=== PATIENT | male | born 1965 | race Two or more races ===

== ENCOUNTER 2022-10-14 12:16 | Emergency (ER) | payer MEDICARE, MEDICAID, SELFPAY ==
--- NOTE | ~2022-10-14 | CT_ITS ---
EXAMINATION: CT CHEST WITHOUT CONTRAST CLINICAL INFORMATION: Fall. Right lateral rib pain and right upper quadrant pain COMPARISON: None TECHNIQUE: Multidetector volumetric CT imaging of the chest was done. Axial MIP volume rendering provided. Sagittal and coronal reformatted images were obtained. This CT examination was performed using dose optimization techniques as appropriate, variously including the following: *Automated exposure control *Adjustment of mA and/or kV according to patient size (this includes techniques or standardized protocols for targeted exams where dose is matched to indication/reason for exam; i.e. extremities or head) *Use of iterative reconstruction technique DLP: 308 mGy-cm FINDINGS: LACROSSE COACH: LUNGS: Subsegmental atelectasis at the left lung base. MEDIASTINUM: The mediastinum is normal. CORONARY ARTERY CALCIFICATION: None visualized on this study. PLEURA: There is no pleural effusion. No pneumothorax. No pleural mass or thickening. AXILLA: No lymphadenopathy. UPPER ABDOMEN: Fatty liver. OSSEOUS STRUCTURES: Degenerative changes of the spine. No fracture. CT/CT chest wo IV con IMPRESSION: No evidence for acute disease in the chest. Subsegmental atelectasis in the left lower lobe. Fatty liver. Fleischner guidelines were followed.
[2022-10-14 12:27] VITALS: BP 151/92; PULSE 100; RESP 18; TEMP 36.5; O2SAT 99; BMI 24.1
--- OUTSIDE RECORDS SUMMARY | 2022-10-14 12:44 | XMS_ITS ---
:1965 Author Care Team Providers Name Role Phone ELIZABETH DEL RIO MD Primary Care Provider [phone] Allergies Code Code System Name Reaction Severity Status Onset NKDA ? Medications Name Status Start Date Stop Date ? ? acetaminophen 500 mg tablet Active ? Not available amoxicillin 500 mg capsule Completed ? 11/06 TAKE 1 TABLET EVERY 8 HRS UNTIL GONE atorvastatin 20 mg tablet Active ? Not av ailable TAKE 1 TABLET BY MOUTH EVERY DAY baclofen 10 mg tablet Completed ? 06/18/2020 cephalexin 500 mg capsule Completed ? 2021 TAKE 1 CAPSULE BY MOUTH TWICE A DAY FOR 7 DAYS cephalexin 500 mg tablet Completed ? 022 Take 1 tablet 3 times a day by oral route. cyclobenzaprine 7.5 mg tablet Completed ? TAKE 1 TABLET BY MOUTH AT BEDTIME NEEDED FOR MUSCLE SPASMS diclofenac 1 % topical gel Active ? Not a vailable APPLY 1 ACT TOPICALLY TWICE A DAY gabapentin 300 mg capsule Completed ? 2019 ibuprofen 600 mg tablet Active ? Not avai lable TAKE 1 TABLET BY MOUTH EVERY 6 HOURS NEEDED FOR PAIN lidocaine 5 % topical patch Active ? Not available APPLY 1 PATCH TOPICALLY ONCE DAY (MAY WEAR UP TO 12HOURS IN A 2 4HR PERIOD methocarbamol 750 mg tablet Completed ? 05/21 polyethylene glycol 3350 17 gram oral powder packet Completed ? 07/10/2020 pregabalin 150 mg capsule Active ? Not av ailable Take 1 capsule twice a day by oral route for 30 days. pregabalin 75 mg capsule Active ? Not melida ilable TAKE 2 CAPSULES BY MOUTH EVERY DAY IN T HE MORNING AND TAKE 2 CAPSULES IN THE EVENING sertraline 25 mg tablet Active ? Not avai lable TAKE 1 TABLET BY MOUTH EVERY DAY simvastatin 20 mg tablet Completed ? 020 topiramate 25 mg tablet Active ? Not avai lable TAKE 2 TABLETS BY MOUTH TWICE A DAY Problems Name Status Onset Date Source ? Post-herpetic Polyneuropathy Active ? ? Fibromyalgia Active ? ? Central Post-stroke Pain Active ? ? Headache Active ? ? Procedures Date Name Performed by ? 05/27/2021 US, Duplex, Venous, Lower Extremity [facility] [address] (Work [address]) Notes: None Results Lab Results None recorded. Past Encounters Encounter Date Diagnosis Provider 02/26/2022 Central Post-stroke Pain; Head[place] Kirsten Hawkins MD: [address], [facility] [place] [address], Ph. 11/06/2021 Central Post-stroke Pain; Headache Kirsten Hawkins MD: [address], [facility] [place] [address], Ph. 05/27/2021 Deep Venous Thrombosis of Lower Thenu Cayla quigley MD: [address]; Central Post-stroke Pain; [address], [place], [place] [address], Ph. Social History Tobacco Smoking Status Former Smoker Vaccine List Notes: Covid 19 vaccine- Wilber and Frahan ray Plan of Care Reminders Provider Appointments None recorded. ? ? Lab None recorded. ? ? Referral None recorded. ? ? Procedures None recorded. ? ? Surgeries None recorded. ? ? Imaging None recorded. ? ? Vitals Height Weight BMI Blood Pressure 5 ft 5 in 148 lbs 24.6 kg/m2 (1) 165/95 mm[H g] (2) 172/102 mm[H g]
--- NOTE | 2022-10-14 13:18 | ED_ITS ---
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 The patient had a stroke approximately 5 years prior and has right upper and right lower extremity weakness. The patient is in a wheelchair. The patient is supposed to go to the bathroom assistance but the patient went to the bathroom by himself. patient fell in the bathroom, struck his right past the bathtub, he did his head but had no loss of consciousness. patient's sister was home at the time and the patient did not spend any prolonged time on the floor. Since the fall, the patient has complained of constant, right-sided chest pain. The pain is sharp, worse with breathing worse with movement. The pain is 10 out 10. The patient is not taking any pain medications for the chest pain. And he denies shortness of breath. He denied fever, chills, rhinorrhea, cough, nausea, vomiting, diarrhea, abdominal pain. MD complaint: fall Onset (ago): day(s) (3) Fall from: standing Fall witnessed: no Place fall occurred: home Loss of consciousness: none Prolonged down time: no Symptoms prior to fall: none Context: tripped/slipped Location of injury: chest ( Right lateral chest) Severity scale (1-10): 10 Quality: sharp Related Data Allergies Allergy/AdvReac Type Severity Reaction Status Date / Time No Known Allergies Allergy Verified 10/14/22 13:17 Review of Systems 2 Review of Systems: Yes all other systems are reviewed and are negative [facility] Past Medical History [facility] Narrative: past medical history: Stroke 5 years prior with right upper and right lower extremity weakness, wheelchair-bound , chronic pain secondary to stroke, depression, hyperlipidemia. 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 Patient is a former smoker, he stop smoking 6 years prior and smoked for 30 years. He drinks 3 cans of beer per day. He denies drug use. Social History Social History Advance Directives: No Advance Directives Information Provided: No Physical Exam Vital Signs: Vital Signs: Last Vital Signs Temp 97.7 F 10/14/22 12:27 Pulse 100 10/14/22 12:27 Resp 18 10/14/22 12:27 BP 151/92 H 10/14/22 12:27 Pulse Ox 99 10/14/22 12:27 O2 Del Method 10/14/22 12:27 BMI result Body Mass Index 24.1 Const: General: cooperative and no acute distress Orientation/consciousness: oriented to person and oriented to place L imitations: no limitations HEENT: Head: Yes normal to inspection, Yes normocephalic and Yes atraumatic Ears: external ears normal General nose exam: Normal external nose present Face and sinus: Yes normal facial exam Mouth: Normal oral and palatal mucosa present Throat: Yes posterior oropharynx normal Eyes: General: appearance normal, both eyes and all related structures Pupils: Equal, round and reactive pupils present Neck: Neck: Yes normal visual inspection, Yes no lymphadenopathy, Yes trachea midline and Yes supple Chest: Chest palpation & inspection: normal inspection of the chest and tenderness ( Moderate to severe right lateral chest ribs 3 through 8, no crepitus) Resp: Effort & Inspection: normal respiratory effort and able to speak in co mplete sentences Auscultation: clear to auscultation bilaterally Cardio: Rate: regular rate Rhythm: regular rhythm Heart sounds: S1 normal heart sound present, S2 normal heart sound present and no murmurs GI: Inspection: Yes normal to inspection Palpation (GI): Soft to palpation, Tenderness to palpation present (GI) in the RUQ ( moderate) and no guarding Auscultation: normal bowel sounds : General: Yes no CVA tenderness Back/Spine/Pelvis: Back: no CVA tenderness Skin: General skin exam: no rashes or lesions noted Neuro: General: oriented to person and oriented to place Cranial nerves: Yes CN's II-XII intact bilaterally and Yes Equal, round and reactive pupils present Cognition (Neuro): normal cognition Motor exam (neuro): Other motor observations present ( right hemiparesis upper and lower extremity) Extrem: Other: atrophy of the right upper extremity secondary to stroke, nonpitting edema of both lower extremities right greater than left, right is chronic larger secondary to stroke and no movement Psych: Appearance: grossly normal Speech and movement: Normal speech and movement present Affect: normal affect Attitude: cooperative Thought process: Normal thought process present Thought content: Normal thought content present Course Course Course Narrative: 57-year-old male who presents emergency department for evaluation of right- sided chest pain after fall 3 days prior. Examination does reveal significant tenderness palpation of the right lateral rib cage with no crepitus or ecchymosis noted. Patient also has right upper quadrant tenderness. I suspect that the patient has multiple rib fractures, he may also have a liver injury. Therefore I ordered a CT scan of the chest without IV contrast. Patient was ordered to get ibuprofen 600 mg orally for his pain. 1633: CT scan of the patient's chest revealed no acute finding. The patient's pain is most likely secondary to musculoskeletal pain / bruise ribs from the fall. The patient will be discharged home. He was advised to take Tylenol and ibuprofen for pain. . I did discuss the possibility of herpes zoster with the family as well, if they notice a rash that the patient is to be re-evaluated by his PCP and possibly treated for herpes zoster. Medications Administered Discontinued Medications Generic Name Dose Route Start Last Admin Trade Name Freq PRN Reason Stop Dose Admin Ibuprofen 600 mg 10/14/22 13:18 10/14/22 13:39 Ibuprofen 600 Mg Tablet PO 10/14/22 13:19 600 mg ONCE STA Administration Discharge Plan Discharge Clinical Impression: Fall Qualifiers: Encounter type: initial encounter Qualified Code(s): W19.XXXA - Unspecified fall, initial encounter Contusion of rib on right side Qualifiers: Encounter type: initial encounter Qualified Code(s): S20.211A - Contusion of right front wall of thorax, initial encounter Patient Disposition: Home, Self-Care Instructions: Rib Contusion (ED) Additional Instructions: the CT scan of your chest did not reveal any broken ribs, this is a very sensitive test and should detected even small rib fractures. Your pain is most likely secondary to bruising of the muscles and ribs on the right side of your chest. Take ibuprofen 200 mg pills,2 pills every 6 hours as needed for pain. Take Tylenol (acetaminophen) 500 mg pills, 2 pills every 4 to 6 hours as needed for pain. Follow-up with your doctor in 2 days. Please return to the emergency department if your symptoms get worse or if you develop any symptoms that are concerning to you. If you develop a rash on the right side of your chest then you need to be re- evaluated by your doctor to make sure that you do not have herpes zoster (shingles) as the cause of your pain.
[2022-10-14] MEDS: Ibuprofen 600 MG TABLET PO (13:39)
== END 2022-10-14 16:55 | disposition home or self-care (01) ==
PROVIDERS: Emergency Provider Emergency Medicine Emergency Medical Services; PCP Internal Medicine
DX: S20.211A Contusion of right front wall of thorax, initial encounter (principal); R07.89 Other chest pain; M54.6 Pain in thoracic spine; W01.0XXA Fall on same level from slipping, tripping and stumbling without subsequent striking against object, initial encounter; Y93.9 Activity, unspecified; Y92.9 Unspecified place or not applicable; Y99.9 Unspecified external cause status
CPT/HCPCS: 71250; 99284

== ENCOUNTER 2022-11-11 13:57 | Emergency (ER) | payer OTHER, SELFPAY ==
--- NOTE | ~2022-11-11 | US_ITS ---
EXAMINATION: US ABDOMEN LIMITED CLINICAL INFORMATION: Right upper quadrant pain and elevated LFTs. COMPARISON: CT abdomen and pelvis without contrast performed earlier the same date TECHNIQUE: Real-time imaging of the right upper quadrant abdominal viscera. FINDINGS: PANCREAS: Normal. LIVER: Diffusely increased hepatic echogenicity, suggesting steatosis. No liver lesion or intrahepatic biliary ductal dilation. Normal directional flow demonstrated in the main portal vein. GALLBLADDER: Normal. The gallbladder is physiologically distended without evidence of stones, sludge, polyps, wall thickening or pericholecystic fluid. COMMON BILE DUCT: Normal in caliber measuring 0.5 cm in diameter. RIGHT KIDNEY: Normal. No hydronephrosis. No renal calculi or focal parenchymal lesions. The kidney measures 11.4 cm in maximum dimension. FREE FLUID: None. US/US abdomen limited IMPRESSION: 1. Normal gallbladder. No evidence of cholelithiasis or sonographic findings of acute cholecystitis. 2. No biliary ductal dilation. 3. Diffusely increased hepatic echogenicity, suggesting steatosis.
--- NOTE | ~2022-11-11 | CT_ITS ---
EXAMINATION: CT ABDOMEN AND PELVIS WITHOUT CONTRAST CLINICAL INFORMATION: Nausea and constipation COMPARISON: CT chest from 10/14/2020 TECHNIQUE: Multidetector volumetric imaging was performed from the superior aspect of the liver through the pubic symphysis. Sagittal and coronal reformatted images were obtained on the technologist's workstation. This CT examination was performed using dose optimization techniques as appropriate, variously including the following: *Automated exposure control *Adjustment of mA and/or kV according to patient size (this includes techniques or standardized protocols for targeted exams where dose is matched to indication/reason for exam; i.e. extremities or head) *Use of iterative reconstruction technique DLP: 551 mGy-cm FINDINGS: LUNG BASES: Bibasilar atelectasis. No pneumothorax. LIVER, GALLBLADDER, AND BILIARY TREE: The liver is normal in size and shape. Prominently decreased hepatic attenuation suggesting hepatic steatosis though underlying hepatocellular pathology not excluded. No focal hepatic lesion or biliary ductal dilatation is present. The gallbladder is unremarkable with no evidence of radiopaque gallstones, gallbladder wall thickening, or obvious pericholecystic inflammatory changes. PANCREAS: Unremarkable. SPLEEN: Unremarkable. ADRENAL GLANDS: Unremarkable. KIDNEYS AND URETERS: Multiple nonobstructive punctate right-sided renal calculi are noted measuring 2 mm without hydronephrosis. No left-sided nephrolithiasis or gross BLADDER: Unremarkable. GASTROINTESTINAL TRACT: Mild fecal loading. The small and large bowel are unremarkable. The appendix is unremarkable. ABDOMINAL WALL: Small fat filled umbilical hernia. LYMPH NODES: No enlarged lymph nodes per size criteria. VASCULAR: Abdominal aorta is nonaneurysmal. PELVIC VISCERA: Prostate measures 3.7 cm. OSSEOUS STRUCTURES: Multilevel degenerative changes of the thoracolumbar spine. CT/CT abdomen pelvis wo IV con IMPRESSION: 1. No acute process of the abdomen or pelvis identified. 2. Prominently decreased hepatic attenuation suggesting hepatic steatosis though underlying hepatocellular pathology not excluded. 3. Multiple nonobstructive punctate right-sided renal calculi are noted measuring 2 mm without hydronephrosis.
[2022-11-11 14:05] VITALS: BP 125/72; BP 60/30; PULSE 80; RESP 16; TEMP 36.8; O2SAT 96; O2SAT 98; BMI 27.8
--- NOTE | 2022-11-11 14:47 | PC.NURSE ---
patient alert to baseline, vss, iv inserted labs drawn, family member at bedside states that the patients urine has been red in color, pt unable to urinate at this time, awaiting provider, will continue to monitor.
[2022-11-11 14:48] LABS: MANUAL DIFF FLAG NO
[2022-11-11 14:52] LABS: Basophils Percent Auto 0.2 % (0-2); Eosinophils Absolute Auto 0.1 X10*3/uL (0.0-0.4); Eosinophils Percent Auto 0.6 % (0-4); Hematocrit 42.9 % (42.0-52.0); Hemoglobin 14.9 g/dl (14.0-18.0); Imm Gran Abs Auto 0.06 X10*3/uL (0.00-0.03); Imm Gran Pct Auto 0.7 % (0.0-0.4); Lymphocytes Absolute Auto 1.2 X10*3/uL (1.2-4.9); Lymphocytes Percent Auto 14.3 % (20-40); Mean Corpuscular HGB Conc 34.7 g/dl (31.0-36.0); Mean Corpuscular Volume 95.1 fL (80.0-98.0); Mean Platelet Volume 9.2 fL (9.4-12.4); Monocytes Absolute Auto 0.8 X10*3/uL (0.1-1.2); Monocytes Percent Auto 9.8 % (2-11); Neutrophils Absolute Auto 6.1 x10*3/uL (2.0-8.3); Neutrophils Percent Auto 74.4 % (45-73); Platelet Count 151 X10*3/uL (160-400); Red Blood Count 4.51 X10*6/uL (4.60-5.80); Red Cell Distribution Width 12.4 % (11.0-16.0); White Blood Count 8.1 X10*3/uL (4.8-10.8)
[2022-11-11 15:00] VITALS: BP 130/72; PULSE 87; RESP 15; TEMP 37.1; O2SAT 98
--- NOTE | 2022-11-11 15:01 | ED.NAVMDI ---
HPI - Nausea/Vomiting/Diarrhea General Chief complaint: Nausea/Vomiting/Diarrhea Stated complaint: VOMITING Time Seen by Provider: 11/11/22 14:55 Source: patient, family and EMS Mode of arrival: EMS Limitations: no limitations History of Present Illness HPI Narrative: 57 yo male with hx of stroke and R sided hemiparesis, depression, HLD, here with 6 days of constipation, minimal flatus, nausea, vomiting after he tries to eat. He has some abdominal discomfort. He has no fevers. This has not happened before. He has not had abdominal surgery in the past. No change in diet, no sick contacts. MD elicited complaint: nausea, vomiting and abdominal pain Onset (ago): day(s) (6) Description of vomiting: watery Associated nausea: Yes Associated abdominal pain: Yes Location of pain: diffuse Radiation: diffuse Pain consistency: constant Severity: mild Quality: aching Exacerbating factors: eating Relieving factors: none Associated symptoms: loss of appetite, malaise and nausea/vomiting Related Data Allergies Allergy/AdvReac Type Severity Reaction Status Date / Time No Known Allergies Allergy Verified 10/14/22 13:17 Review of Systems Review of Systems: Constitutional : No Weight loss, No Fever, No Chills, pos fatigue ENT/Mouth : No sore throat, No Rhinorrhea Eyes: No Swelling, No Redness Cardiovascular : No Chest Pain, No SOB, NoEdema Respiratory : No Cough, No Sputum, No Wheezing Gastrointestinal : Positive Nausea, Positive Vomiting, no Diarrhea, positive abdominal Pain, No Hematochezia, No Melena, pos constipation Genitourinary : No Dysuria, No Urinary Frequency, No Hematuria, No Urgency, pos decreased urinary output Musculoskeletal : No joint pain, No Myalgias, No Joint Swelling Skin : No Skin Lesions, No rash Neuro : No Weakness, No Numbness, No Dizziness, No Headache Psych : No Anxiety/Panic, No Depression Heme/Lymph: No Bruising, No Lymphadenopathy Endocrine : No Polyuria, No Polydipsia All other systems reviewed and are negative. Gastrointestinal: Gastrointestinal: Reports nausea PMFSH Past Medical History Attestation statement: The following information was validated with the patient. Medical History Depression High cholesterol Stroke Social History Social History Alcohol intake: current Alcohol intake frequency: holidays/special occasions only Alcohol type: beer Smoked in Last 30 Days: No Use of substances other than those prescribed or required for medical reasons: No Advance Directives: Yes Advance Directives Information Provided: Yes Advance Directives on File: No Physical Exam Vital Signs: Vital Signs: Last Vital Signs Temp 98.0 F 11/11/22 16:00 Pulse 84 11/11/22 16:00 Resp 18 11/11/22 16:00 BP 113/68 11/11/22 16:00 Pulse Ox 95 11/11/22 16:00 O2 Del Method 11/11/22 16:00 BMI result Body Mass Index 27.8 Appearance: Alert. Oriented X3. No acute distress. Eyes: Pupils equal, round and reactive to light. ENT: Pharynx mildly dry MM. Neck: Normal inspection. Neck supple. CVS: Normal heart rate and rhythm. Pulses normal. Respiratory: No respiratory distress. Breath sounds normal. Abdomen: Soft with mild distention. no rebound or guarding. Skin: Skin warm and dry. Normal skin color. Normal skin turgor. Extremities: No lower extremity edema. No calf ttp Neuro: Oriented X 3. R sided hemiparesis. No sensory deficit. Course Course Course Narrative: signed out to Dr. Leos 430pm Medications Administered Discontinued Medications Generic Name Dose Route Start Last Admin Trade Name Lucien PRN Reason Stop Dose Admin Lactated Ringer's 1,000 mls @ 999 mls/hr 11/11/22 15:15 11/11/22 16:06 Lr IV 11/11/22 16:15 999 mls/hr .Q1H1M AISSATOU Administration Ondansetron HCl 4 mg 11/11/22 15:06 11/11/22 16:06 Ondansetron Hcl 4 Mg/2 Ml Vial IVPUSH 11/11/22 15:07 4 mg ONCE ONE Administration Medical Decision Making Medical Decision Making [facility] Narrative: 57 yo male with hx of stroke and R sided deficits, HLD here with constipation, abdominal pain and nausea vomiting he denies sick contacts, dietary changes or pain medications. no prior abdominal surgeries. at this time will need basic labs, CT scan for obstructive purposes, hydration and IV zofran. Differential Diagnosis Differential Diagnoses: The differential diagnosis associated with the presentation includes possible constipation, obstruction, mass, cholecystitis, pancreatitis, UTI Lab Data [facility] Lab Attestation statement: I reviewed the patient's lab results. 11/11/22 14:42 11/11/22 14:42 Labs: Lab Results 11/11/22 11/11/22 11/11/22 Range/Units 14:42 14:42 14:42 WBC 8.1 (4.8-10.8) X10*3/uL RBC 4.51 L (4.60-5.80) X10*6/uL Hgb 14.9 (14.0-18.0) g/dl Hct 42.9 (42.0-52.0) % MCV 95.1 (80.0-98.0) fL MCH 33.0 (27.0-33.0) pg MCHC 34.7 (31.0-36.0) g/dl RDW 12.4 (11.0-16.0) % Plt Count 151 L (160-400) X10*3/uL MPV 9.2 L (9.4-12.4) fL Immature Gran % (Auto) 0.7 H (0.0-0.4) % Neut % (Auto) 74.4 H (45-73) % Lymph % (Auto) 14.3 L (20-40) % Love % (Auto) 9.8 (2-11) % Eos % (Auto) 0.6 (0-4) % Baso % (Auto) 0.2 (0-2) % Lymph # (Auto) 1.2 (1.2-4.9) X10*3/uL Love # (Auto) 0.8 (0.1-1.2) X10*3/uL Eos # (Auto) 0.1 (0.0-0.4) X10*3/uL Baso # (Auto) 0.0 (0.0-0.2) X10*3/uL Abs Immat Gran (auto) 0.06 H (0.00-0.03) X10*3/uL Absolute Neuts (auto) 6.1 (2.0-8.3) x10*3/uL Absolute Nucleated RBC 0.000 (0.0-0.012) X10*3/uL Nucleated RBC % (auto) 0.0 (0.0-0.2) /100WBC Sodium 132 L (135-145) mmol/L Potassium 4.1 (3.3-5.1) mmol/L Chloride 104 (96-108) mmol/L Carbon Dioxide 15 L (22-29) mmol/L Anion Gap 17 (12-20) BUN 16 (9-16) mg/dL Creatinine 0.93 (0.5-1.4) mg/dL Estim Creat Clear Calc 75.8 Estimated GFR > 60 Random Glucose 121 H (60-115) mg/dL Calcium 8.4 (8.4-10.2) mg/dL Total Bilirubin 2.1 H (0.0-1.0) mg/dL AST 242 H (5-37) U/L ALT 122 H (0-40) U/L Alkaline Phosphatase 96 (39-117) U/L Total Protein 6.5 (6.5-8.0) g/dL Albumin 3.7 (3.5-5.0) g/dL Lipase 30 (8-78) U/L Influenza Type A (PCR) NEGATIVE (Negative) Influenza Type B (PCR) NEGATIVE (Negative) RSV RNA Qual (PCR) NEGATIVE (Negative) SARS-CoV-2 RNA (RT-PCR) NEGATIVE (Negative) Independent Interpretation I performed an independent interpretation of an: CT Scan (no gallstones noted) Independent Historian Clinical information obtained from an independent historian. History obtained from or confirmed by: Other (family) Discharge Plan Discharge Clinical Impression: Nausea & vomiting Patient Disposition: Still a Patient
[2022-11-11 15:16] LABS: Alanine Aminotransferase 122 U/L (0-40); Albumin Level 3.7 g/dL (3.5-5.0); Alkaline Phosphatase 96 U/L (39-117); Anion Gap 17 (12-20); Aspartate Amino Transferase 242 U/L (5-37); Bilirubin Total 2.1 mg/dL (0.0-1.0); Blood Urea Nitrogen 16 mg/dL (9-16); Calcium 8.4 mg/dL (8.4-10.2); Carbon Dioxide 15 mmol/L (22-29); Chloride 104 mmol/L (96-108); Creatinine Clr Calc Pharmacy 75.8; Estimated Glomerular Filt Rate > 60; Glucose Random 121 mg/dL (60-115); Potassium 4.1 mmol/L (3.3-5.1); Sodium 132 mmol/L (135-145); Total Protein 6.5 g/dL (6.5-8.0)
[2022-11-11 15:43] LABS: Lipase 30 U/L (8-78)
[2022-11-11 15:54] LABS: Influenza A PCR NEGATIVE (Negative); Influenza B PCR NEGATIVE (Negative); Resp Syncy Virus RNA Qual PCR NEGATIVE (Negative); SARS COV2 PCR INHOUSE NEGATIVE (Negative)
[2022-11-11 16:00] VITALS: BP 113/68; PULSE 84; RESP 18; TEMP 36.7; O2SAT 95
[2022-11-11] MEDS: Lactated Ringers 1,000 ML 999 ML IV (16:06)
[2022-11-11] MEDS: ondansetron HCL 4 MG/2 ML VIAL IVPUSH (16:06)
--- NOTE | 2022-11-11 16:09 | PC.NURSE ---
patient awake/alert to baseline,pt medicated for nausea, ivf running per order, vss, call keita within reach, family at bedside, will continue to monitor
[2022-11-11 18:00] VITALS: BP 110/66; PULSE 91; RESP 16; TEMP 36.7; O2SAT 98
--- NOTE | 2022-11-11 18:40 | PC.NURSE ---
patient sleeping, wakes to verbal stimulus, pt urinated prior to obtaining the bladder scan- provider aware, urine obtained, vss, family at bedside, call keita within reach, will continue to monitor.
[2022-11-11 18:53] LABS: Appearance Urine Cloudy; Color Urine Yellow; Glucose Urine UA Negative (Negative); Leukocyte Esterase Urine Negative (Negative); Nitrite Urine Negative (Negative); PH 6.5 (5.0-9.0); Specific Gravity - Urine 1.015 (1.005-1.025); Urine Blood Negative (Negative); Urine Ketones 80 mg/dL (Negative); Urine Protein Negative (Neg-Trace)
--- NOTE | 2022-11-11 19:41 | PC.NURSE ---
Assumed care of pt. at 1900. Pt. in room lying in bed with daughter at bedside. Pt. requesting to urinate. Provided with bedpan. No distress noted. Will continue to monitor.
--- NOTE | 2022-11-11 19:46 | PC.NURSE ---
Assumed care of pt. at 1900. Pt. lying in bed at this time watching tv. No distress noted. Pt. reports no pain at this time. Pt. provided with gingerale and crackers for PO challenge. Will continue to monitor.
--- NOTE | 2022-11-11 20:15 | PC.NURSE ---
Pt. tolerated PO gingerale and crackers.
== END 2022-11-11 20:47 | disposition home or self-care (01) ==
PROVIDERS: Emergency Medicine; Emergency Provider Emergency Medicine; PCP Internal Medicine
DX: R11.2 Nausea with vomiting, unspecified (principal); R79.89 Other specified abnormal findings of blood chemistry; K59.00 Constipation, unspecified; R19.7 Diarrhea, unspecified; R10.33 Periumbilical pain; Z20.822 Contact with and (suspected) exposure to COVID-19; Z20.828 Contact with and (suspected) exposure to other viral communicable diseases; Z79.899 Other long term (current) drug therapy
CPT/HCPCS: 0241U; 36415; 51798; 74176; 76705; 80053; 81003; 83690; 85025; 96361; 96374; 99284; J2405

== ENCOUNTER 2023-08-07 15:14 | Emergency (ER) | payer OTHER, SELFPAY ==
--- NOTE | ~2023-08-07 | US_ITS ---
EXAMINATION: US VENOUS ULTRASOUND WITH DOPPLER LOWER EXTREMITY, RIGHT CLINICAL INFORMATION: Right leg swelling. COMPARISON: None available. TECHNIQUE: Ultrasound of the deep veins is performed from the hip to the calf with compression sonography and color and pulse Doppler assessment. Spectral analysis with color-flow imaging is performed. FINDINGS: There is chronic appearing thrombus within the visualized segments of the mid femoral vein through the popliteal vein. There is lack of compressibility. There is normal venous compression in the visualized common femoral vein, proximal femoral vein, profunda femoral vein without evidence of deep venous thrombosis. The calf veins are not well-visualized. If the patient's symptoms persist, followup ultrasound in 5 days 7 days might be of value to exclude proximal propagation from a non-visualized calf vein. US/US venous duplex LE RT IMPRESSION: Chronic appearing thrombus within the visualized segments of the mid femoral vein through the popliteal vein.
--- NOTE | ~2023-08-07 | US_ITS ---
EXAMINATION: US VENOUS WITH DOPPLER UPPER EXTREMITY, RIGHT CLINICAL INFORMATION: Swelling. Pain. COMPARISON: None available. TECHNIQUE: Ultrasound of the upper extremity is performed using compression sonography and color and pulse Doppler flow with assessment of augmentation of flow. There is also imaging and Doppler assessment of the jugular and subclavian veins. Spectral analysis with color-flow imaging is performed. FINDINGS: There is occlusive thrombus present in the axillary, basilic and cephalic veins. US/US venous duplex UE RT IMPRESSION: Positive for deep vein thrombosis. Occlusive thrombus present in the axillary, basilic and cephalic veins. This critical result was discussed with MARIA ALEJANDRA Powell on 08/07/2023 and it was ascertained that the content and urgency of the report was understood at the time of direct communication.
[2023-08-07 15:28] VITALS: BP 132/72; BP 133/83; PULSE 110; PULSE 93; RESP 16; TEMP 36.8; O2SAT 95; O2SAT 96; BMI 22.1
[2023-08-07 16:26] LABS: MANUAL DIFF FLAG NO
--- NOTE | 2023-08-07 16:31 | ED_ITS ---
HPI - General Adult General Chief complaint: General Medical Stated complaint: RT LEG SWELLING X 5 DAYS,HX OF CVA Time Seen by Provider: 08/07/23 15:29 Source: patient and family (son- offered pharmacy resource tech but refused ) Mode of arrival: ambulatory Limitations: other (non verbal ) History of Present Illness HPI narrative: This is a 58-year-old male history of CVA with residual right-sided deficits presenting to the emergency department for evaluation of increasing swelling to the right lower extremity and right upper extremity for the past few days. Associated discomfort to right lower extremity & right upper extremity . Patient is not on blood thinners. No reports of CP or SOB. No A/c trauma. Related Data Previous Rx's Medication Instructions Recorded ondansetron 4 mg disintegrating 4 mg PO Q6H PRN nausea and 11/11/22 tablet vomiting #14 tabs apixaban 5 mg (74 tabs) tablets in 5 mg PO BID #74 ea 08/07/23 a dose pack ([employer] DVT-PE Treat 30D Start) Allergies Allergy/AdvReac Type Severity Reaction Status Date / Time No Known Allergies Allergy Verified 10/14/22 13:17 Review of Systems 2 Review of Systems: Constitutional : No Weight loss, No Fever, No Chills, No Fatigue, No Malaise ENT/Mouth : No sore throat, No Rhinorrhea Eyes: No Eye Pain, No Swelling, No Redness Cardiovascular : No Chest Pain, No SOB, No Dyspnea on Exertion, No Orthopnea, No Edema, No Palpitations Respiratory : No Cough, No Sputum, No Wheezing Gastrointestinal : No Nausea, No Vomiting, No Diarrhea, No Constipation, No abdominal Pain, No Hematochezia, No Melena Genitourinary : No Dysuria, No Urinary Frequency, No Hematuria, Musculoskeletal : No joint pain, No Myalgias, No Joint Swelling, +lower extremity swelling Skin : No Skin Lesions, No rash Neuro : No Weakness, No Numbness, No Dizziness, No Headache Psych : No Anxiety/Panic, No Depression All other systems reviewed and are negative Yes all other systems are reviewed and are negative [facility] Past Medical History Attestation statement: The following information was validated with the patient. Source: old records reviewed and nursing notes reviewed Medical History Depression High cholesterol Stroke Social History Social History Alcohol intake: current Alcohol intake frequency: holidays/special occasions only Alcohol type: beer Advance Directives: No Physical Exam ED Vital Signs: Vital Signs - 24 hr 08/07/23 15:28 Temperature 98.3 F Pulse Rate 93 Respiratory Rate 16 Blood Pressure 133/83 Pulse Oximetry 96 Oxygen Delivery Method Room Air BMI result Body Mass Index 22.1 vss Appearance: Alert.? Oriented X3.? No acute distress.? Head: Normocephalic, atraumatic, no step-offs or deformities Eyes: Pupils equal, round and reactive to light.? ENT: Pharynx normal.? Neck: Normal inspection.? Neck supple.? CVS: Normal heart rate and rhythm.? Pulses normal.? Respiratory: No respiratory distress.? Breath sounds normal.? Abdomen: Soft and nontender.? Skin: Skin warm and dry.? Normal skin color.? Normal skin turgor.? Extremities: 2+ non pitting edema to rle and RUE. Normal LLE.? + R calf ttp. 5/5 strength to bilateral upper and lower extremities 2+ radial, dp, at, pt pulses equal and b/l. Neuro: Oriented X 3.? No motor deficit.? No sensory deficit. CN 2-12 intact Course Reevaluation(s) Reevaluation #1: Chronic appearing thrombus within the visualized segments of mid femoral vein through the popliteal vein. Ultrasound of right upper extremity pending. This case will likely need to be discussed with attending. Sign-out given to Janine VARGHESE Time: 16:42 Reevaluation #2: Right upper extremity thrombus found. Occlusive thrombus present in the axillary, basilic and cephalic veins. Spoke with Dr. Deal, vascular surgeon. Report sent. recommendation was to follow-up with PCP. Patient will be sent home on Eliquis. First dose will be given in the ER. patient will follow-up with PCP Medications Administered Discontinued Medications Generic Name Dose Route Start Last Admin Trade Name Freq PRN Reason Stop Dose Admin Apixaban 5 mg 08/07/23 18:48 08/07/23 19:10 Apixaban 5 Mg Tablet PO 08/07/23 18:49 5 mg ONCE ONE Administration Medical Decision Making Medical Decision Making MDM Narrative: 58-year-old male presents with right lower extremity & RUE swelling worsening over the past few days. Physical exam right lower extremity & right upper extremity edema, positive Kalani on the right. Palpable pulses to lower& upper extremities. Normal sensation distally. History and physical exam concerning for possible DVT. Unlikely arterial occlusion or threat to Limb. Unlikely cellulitis. Low suspicion for electrolyte abnormalities. No signs of neurovascular compromise. Plan labs, imaging. Added by Janine Hancock COMPUTER METHODS ANALYST: Right upper and right lower extremity both positive for DVT. Patient has good palpable pulses, discuss case with Dr. Deal, vascular surgeon. Recommendation was made for patient to be discharged on blood thinners. First dose of Eliquis will be given in the ER. Patient will follow-up with PCP. Differential Diagnosis Differential Diagnoses: The differential diagnosis associated with the presentation includes History and physical exam concerning for possible DVT. Unlikely arterial occlusion or threat to [place]. Unlikely cellulitis. Low suspicion for electrolyte abnormalities. No signs of neurovascular compromise. Admission/Observation Consideration of admission/observation: Escalation of care including admission/observation considered Unlikley Lab Data MDM Lab Attestation statement: I reviewed the patient's lab results. 08/07/23 16:21 08/07/23 16:21 Labs: Lab Results 08/07/23 Range/Units 16:21 WBC 6.9 (4.8-10.8) X10*3/uL RBC 4.37 L (4.60-5.80) X10*6/uL Hgb 14.2 (14.0-18.0) g/dl Hct 43.6 (42.0-52.0) % MCV 99.8 H (80.0-98.0) fL MCH 32.5 (27.0-33.0) pg MCHC 32.6 (31.0-36.0) g/dl RDW 13.9 (11.0-16.0) % Plt Count 157 L (160-400) X10*3/uL MPV 9.3 L (9.4-12.4) fL Immature Gran % (Auto) 0.6 H (0.0-0.4) % Neut % (Auto) 67.0 (45-73) % Lymph % (Auto) 17.2 L (20-40) % Williamson % (Auto) 12.6 H (2-11) % Eos % (Auto) 2.0 (0-4) % Baso % (Auto) 0.6 (0-2) % Lymph # (Auto) 1.2 (1.2-4.9) X10*3/uL Williamson # (Auto) 0.9 (0.1-1.2) X10*3/uL Eos # (Auto) 0.1 (0.0-0.4) X10*3/uL Baso # (Auto) 0.0 (0.0-0.2) X10*3/uL Abs Immat Gran (auto) 0.04 H (0.00-0.03) X10*3/uL Absolute Neuts (auto) 4.6 (2.0-8.3) x10*3/uL Absolute Nucleated RBC 0.000 (0.0-0.012) X10*3/uL Nucleated RBC % (auto) 0.0 (0.0-0.2) /100WBC PT 11.5 (11.1-13.3) SEC INR 0.9 (0.9-1.1) Sodium 139 (135-145) mmol/L Potassium 3.9 (3.3-5.1) mmol/L Chloride 107 (96-108) mmol/L Carbon Dioxide 24 (22-29) mmol/L Anion Gap 12 (12-20) BUN 5 L (9-16) mg/dL Creatinine 0.80 (0.5-1.4) mg/dL Estim Creat Clear Calc 89.3 Estimated GFR > 60 Random Glucose 129 H (60-115) mg/dL Calcium 8.7 (8.4-10.2) mg/dL Total Bilirubin 1.4 H (0.0-1.0) mg/dL AST 21 (5-37) U/L ALT 18 (0-40) U/L Alkaline Phosphatase 86 (39-117) U/L Total Protein 6.3 L (6.5-8.0) g/dL Albumin 3.0 L (3.5-5.0) g/dL Independent Interpretation I performed an independent interpretation of an: Ultrasound (US/US venous duplex LE RT IMPRESSION: Chronic appearing thrombus within the visualized segments of the mid femoral vein through the popliteal vein.) Radiology Impression Discussion of test interpretation with radiology: I have reviewed the radiologist's reading. External Record Review External record reviewed: Inpatient record, Prior outpatient labs, Prior outpatient radiology and Primary care record Discharge Plan Discharge Clinical Impression: Localized swelling of right lower extremity, Pain and swelling of right upper extremity Patient Disposition: Home, Self-Care Instructions: Apixaban (By mouth), Deep Vein Thrombosis (ED), Arm Pain (ED) Additional Instructions: Take your medications as prescribed. If you were prescribed antibiotics today, it is important that you take your medication to their entirety, do not skip any doses, do not finish them early. Follow-up with your primary care provider this week. Return to the emergency department with new or worsening symptoms. Such as fevers, chills, chest pain, shortness of breath, nausea, vomiting, dizziness, headache, vision changes, lethargy You have blood clot in your right upper arm and in your leg. Please follow-up with your primary care provider. Please take blood thinners twice a day. You will be giving information on how to take the medications. you will be given 30 day supply. You will need to follow-up with decrease the pre for further management with In case of emergency call 911 Prescriptions: New Eliquis DVT-PE Treat 30D Start 5 mg (74 tabs) tablets,dose pack 5 mg PO BID Qty: 74 0RF No Action ondansetron 4 mg tablet,disintegrating 4 mg PO Q6H PRN (Reason: nausea and vomiting) Qty: 14 0RF Referrals: Lori Bolanos MD [Primary Care Provider] - 2 days Interventions: ED Discharge Assessment Last Done: 08/07/23 19:35 Discharge Date/Time: 08/07/23 19:35
[2023-08-07 16:33] LABS: INTERNATIONAL NORM RATIO 0.9 (0.9-1.1); Prothrombin Time 11.5 SEC (11.1-13.3)
[2023-08-07 16:35] LABS: Basophils Percent Auto 0.6 % (0-2); Eosinophils Absolute Auto 0.1 X10*3/uL (0.0-0.4); Hematocrit 43.6 % (42.0-52.0); Hemoglobin 14.2 g/dl (14.0-18.0); Imm Gran Abs Auto 0.04 X10*3/uL (0.00-0.03); Imm Gran Pct Auto 0.6 % (0.0-0.4); Lymphocytes Absolute Auto 1.2 X10*3/uL (1.2-4.9); Lymphocytes Percent Auto 17.2 % (20-40); Mean Corpuscular HGB Conc 32.6 g/dl (31.0-36.0); Mean Corpuscular Hemoglobin 32.5 pg (27.0-33.0); Mean Corpuscular Volume 99.8 fL (80.0-98.0); Mean Platelet Volume 9.3 fL (9.4-12.4); Monocytes Absolute Auto 0.9 X10*3/uL (0.1-1.2); Monocytes Percent Auto 12.6 % (2-11); Neutrophils Absolute Auto 4.6 x10*3/uL (2.0-8.3); Platelet Count 157 X10*3/uL (160-400); Red Blood Count 4.37 X10*6/uL (4.60-5.80); Red Cell Distribution Width 13.9 % (11.0-16.0); White Blood Count 6.9 X10*3/uL (4.8-10.8)
[2023-08-07 16:49] LABS: Alanine Aminotransferase 18 U/L (0-40); Alkaline Phosphatase 86 U/L (39-117); Anion Gap 12 (12-20); Aspartate Amino Transferase 21 U/L (5-37); Bilirubin Total 1.4 mg/dL (0.0-1.0); Blood Urea Nitrogen 5 mg/dL (9-16); Calcium 8.7 mg/dL (8.4-10.2); Carbon Dioxide 24 mmol/L (22-29); Chloride 107 mmol/L (96-108); Creatinine Clr Calc Pharmacy 89.3; Estimated Glomerular Filt Rate > 60; Glucose Random 129 mg/dL (60-115); Potassium 3.9 mmol/L (3.3-5.1); Sodium 139 mmol/L (135-145); Total Protein 6.3 g/dL (6.5-8.0)
[2023-08-07] MEDS: Apixaban 5 MG TABLET PO (19:10)
== END 2023-08-07 19:35 | disposition home or self-care (01) ==
PROVIDERS: Physician Assistant; Emergency Provider Emergency Medicine; PCP Internal Medicine
DX: R60.0 Localized edema (principal); Z79.899 Other long term (current) drug therapy
CPT/HCPCS: 36415; 80053; 85025; 85610; 93971; 99282; 99283; 99284

== ENCOUNTER 2023-12-08 15:41 | Emergency (ER) | payer OTHER, SELFPAY ==
--- NOTE | ~2023-12-08 | CT_ITS ---
EXAMINATION: CT HEAD WITHOUT CONTRAST CLINICAL INFORMATION: Generalized weakness. COMPARISON: None available. TECHNIQUE: Contiguous axial imaging was performed from the skull base to vertex without intravenous administration of contrast. This CT examination was performed using dose optimization techniques as appropriate, variously including the following: *Automated exposure control. *Adjustment of mA and/or kV according to patient size (this includes techniques or standardized protocols for targeted exams where dose is matched to indication/reason for exam; i.e. extremities or head). *Use of iterative reconstruction technique. DLP: 602 mGy-cm FINDINGS: At there are chronic regions of encephalomalacia within the left MCA territory involving the deep white matter, caudate/lentiform nuclei, and anterior pole of the left temporal lobe with associated volume loss. Ex vacuo dilatation of the left lateral ventricle. No additional loss of beth-white matter differentiation. No evidence of acute intracranial hemorrhage. No additional parenchymal attenuation abnormalities. No evidence for obstructive hydrocephalus. No abnormal mass effect or midline shift. No extra-axial fluid collections. No acute soft tissue or osseous abnormalities. Mild mucosal thickening of the paranasal sinuses. The right-sided mastoid air cells are underdeveloped. The mastoid air cells and middle ear cavities are clear. CT/CT head/brain wo IV con IMPRESSION: 1. No evidence of acute intracranial hemorrhage or edematous territorial infarction. 2. Chronic regions of encephalomalacia within the left MCA territory.
--- NOTE | ~2023-12-08 | CT_ITS ---
EXAMINATION: CT CHEST, ABDOMEN AND PELVIS WITHOUT CONTRAST. CLINICAL INFORMATION: Decreased by mouth intake, evaluate for pneumonia and bowel obstruction. COMPARISON: CT abdomen/pelvis 11/11/2022. CT chest 10/14/2022. TECHNIQUE: Multidetector volumetric imaging was performed from the thoracic inlet through the pubic symphysis without IV contrast. Sagittal and coronal reformatted images were obtained on the technologist's workstation. This CT examination was performed using dose optimization techniques as appropriate, variously including the following: *Automated exposure control *Adjustment of mA and/or kV according to patient size (this includes techniques or standardized protocols for targeted exams where dose is matched to indication/reason for exam; i.e. extremities or head) *Use of iterative reconstruction technique DLP: 256 and 484 mGy-cm FINDINGS: CHEST: Lung: No focal consolidation or significant groundglass disease. No suspicious pulmonary nodule or mass. Central airways are patent. Mediastinum: Normal heart size. No pericardial effusion. No hilar or mediastinal lymphadenopathy. Normal thyroid gland. Mild coronary artery calcifications. Pleura: No pleural effusion. No pleural mass or thickening. No pneumothorax. Chest Wall/Axilla: No lymphadenopathy by size criteria. Mild symmetric gynecomastia. ABDOMEN/PELVIS: Peritoneal Space: No free air or free fluid. Liver, Gallbladder, Biliary Tree: Decreased attenuation of liver parenchyma consistent with hepatic steatosis. Otherwise, liver is normal in size and morphology without focal lesions in this limited noncontrast examination. No biliary ductal dilatation is present. The gallbladder is unremarkable with no evidence of radiopaque gallstones, gallbladder wall thickening, or obvious pericholecystic inflammatory changes. Pancreas: Unremarkable. Spleen: Unremarkable. Adrenal Glands: Unremarkable. Kidneys and Ureters: No hydronephrosis, hydroureter, or calculi seen. No perinephric stranding. Bladder: Mild diffuse urinary bladder wall thickening. No intraluminal calculi. No significant perivesical fat stranding. Gastrointestinal Tract: The stomach and the small bowel are nondilated. Normal appendix. No pericolonic inflammatory changes. No evidence of bowel obstruction. Abdominal Wall: No significant hernia is appreciated. Lymphovascular Structures: No lymphadenopathy by size criteria. Normal caliber abdominal aorta. Pelvic Viscera: Prostate gland measures 4.5 cm in transverse dimension. Symmetric seminal vesicles. No free fluid. Osseous Structures: No acute or aggressive osseous findings. Degenerative changes of the spine. CT/CT abdomen pelvis wo IV con IMPRESSION: 1. No evidence of bowel obstruction. 2. Hepatic steatosis. 3. Mild diffuse urinary bladder wall thickening, correlate clinically for cystitis or chronic outlet obstruction. 4. Mild symmetric gynecomastia.
[2023-12-08 15:48] VITALS: BP 130/78; PULSE 110; O2SAT 98
[2023-12-08 16:43] VITALS: BP 138/94; PULSE 89; RESP 18; TEMP 36.8; O2SAT 100; BMI 21.5
--- NOTE | 2023-12-08 16:56 | ECG_ITS ---
Test Reason : POOR PO INTAKE Blood Pressure : / mmHG Vent. Rate : 094 BPM Atrial Rate : 094 BPM P-R Int : 188 ms QRS Dur : 098 ms QT Int : 364 ms P-R-T Axes : 079 080 087 degrees QTc Int : 455 ms Normal sinus rhythm Normal ECG No previous ECGs available Referred By: Tevin Mg Electronically Signed By:PHUC SEAY MD
--- NOTE | 2023-12-08 17:04 | ED_ITS ---
HPI - General Adult General Chief complaint: Weakness Stated complaint: body aches for a few days History of Present Illness HPI narrative: Left without completion of treatment by ED provider. Related Data Previous Rx's Medication Instructions Recorded ondansetron 4 mg disintegrating 4 mg PO Q6H PRN nausea and 11/11/22 tablet vomiting #14 tabs apixaban 5 mg (74 tabs) tablets in 5 mg PO BID #74 ea 08/07/23 a dose pack ([employer] DVT-PE Treat 30D Start) Allergies Allergy/AdvReac Type Severity Reaction Status Date / Time No Known Allergies Allergy Verified 10/14/22 13:17 [facility] Past Medical History Medical History Depression High cholesterol Stroke Social History Social History Alcohol intake: current Alcohol intake frequency: holidays/special occasions only Alcohol type: beer Advance Directives: No Advance Directives Information Provided: No Physical Exam ED Vital Signs: Vital Signs - 24 hr 12/08/23 16:43 Temperature 98.3 F Pulse Rate 89 Respiratory Rate 18 Blood Pressure 138/94 H Pulse Oximetry 100 Oxygen Delivery Method Room Air BMI result Body Mass Index 21.5 Course Course Course Narrative: RME: 58 yold male with pmh of stroke with right sided weakness presets to the ED for poor po intake, bodyaches, poor appetitite. no new stroke like symptoms. labs, ekg, and images ordered. [place] Zealander speaking Medical Decision Making Lab Data 12/08/23 17:10 12/08/23 17:10 Labs: Lab Results 12/08/23 Range/Units 17:10 WBC 6.7 (4.8-10.8) X10*3/uL RBC 5.09 (4.60-5.80) X10*6/uL Hgb 16.3 (14.0-18.0) g/dl Hct 48.8 (42.0-52.0) % MCV 95.9 (80.0-98.0) fL MCH 32.0 (27.0-33.0) pg MCHC 33.4 (31.0-36.0) g/dl RDW 12.9 (11.0-16.0) % Plt Count 163 (160-400) X10*3/uL MPV 10.0 (9.4-12.4) fL Immature Gran % (Auto) 0.7 H (0.0-0.4) % Neut % (Auto) 72.8 (45-73) % Lymph % (Auto) 16.8 L (20-40) % Starr % (Auto) 8.1 (2-11) % Eos % (Auto) 1.0 (0-4) % Baso % (Auto) 0.6 (0-2) % Lymph # (Auto) 1.1 L (1.2-4.9) X10*3/uL Starr # (Auto) 0.5 (0.1-1.2) X10*3/uL Eos # (Auto) 0.1 (0.0-0.4) X10*3/uL Baso # (Auto) 0.0 (0.0-0.2) X10*3/uL Abs Immat Gran (auto) 0.05 H (0.00-0.03) X10*3/uL Absolute Neuts (auto) 4.9 (2.0-8.3) x10*3/uL Absolute Nucleated RBC 0.000 (0.0-0.012) X10*3/uL Nucleated RBC % (auto) 0.0 (0.0-0.2) /100WBC Sodium 143 (135-145) mmol/L Potassium 4.0 (3.3-5.1) mmol/L Chloride 110 H (96-108) mmol/L Carbon Dioxide 21 L (22-29) mmol/L Anion Gap 16 (12-20) BUN 10 (9-16) mg/dL Creatinine 0.82 (0.5-1.4) mg/dL Estim Creat Clear Calc 87.3 Estimated GFR > 60 Random Glucose 85 (60-115) mg/dL Calcium 9.5 D (8.4-10.2) mg/dL Magnesium 2.2 (1.6-2.6) mg/dL Total Bilirubin 1.5 H (0.0-1.0) mg/dL AST 27 (5-37) U/L ALT 21 (0-40) U/L Alkaline Phosphatase 77 (39-117) U/L Total Creatine Kinase 59 (38-174) U/L Troponin I High Sens < 2.7 (<3.5-35.0) ng/L Total Protein 8.1 H (6.5-8.0) g/dL Albumin 4.1 (3.5-5.0) g/dL Influenza Type A (PCR) NEGATIVE (Negative) Influenza Type B (PCR) NEGATIVE (Negative) RSV RNA Qual (PCR) NEGATIVE (Negative) SARS-CoV-2 RNA (RT-PCR) NEGATIVE (Negative) Discharge Plan Discharge Clinical Impression: Weakness Patient Disposition: Left W/O Completing Treatment Prescriptions: No Action ondansetron 4 mg tablet,disintegrating 4 mg PO Q6H PRN (Reason: nausea and vomiting) Qty: 14 0RF Eliquis DVT-PE Treat 30D Start 5 mg (74 tabs) tablets,dose pack 5 mg PO BID Qty: 74 0RF Discharge Date/Time: 12/08/23 21:56
[2023-12-08 17:19] LABS: MANUAL DIFF FLAG NO
[2023-12-08 17:37] LABS: Alanine Aminotransferase 21 U/L (0-40); Albumin Level 4.1 g/dL (3.5-5.0); Alkaline Phosphatase 77 U/L (39-117); Anion Gap 16 (12-20); Aspartate Amino Transferase 27 U/L (5-37); Bilirubin Total 1.5 mg/dL (0.0-1.0); Blood Urea Nitrogen 10 mg/dL (9-16); Calcium 9.5 mg/dL (8.4-10.2); Carbon Dioxide 21 mmol/L (22-29); Chloride 110 mmol/L (96-108); Creatinine Clr Calc Pharmacy 87.3; Estimated Glomerular Filt Rate > 60; Glucose Random 85 mg/dL (60-115); Magnesium 2.2 mg/dL (1.6-2.6); Sodium 143 mmol/L (135-145); Total Protein 8.1 g/dL (6.5-8.0)
[2023-12-08 17:46] LABS: Basophils Percent Auto 0.6 % (0-2); Eosinophils Absolute Auto 0.1 X10*3/uL (0.0-0.4); Hematocrit 48.8 % (42.0-52.0); Hemoglobin 16.3 g/dl (14.0-18.0); Imm Gran Abs Auto 0.05 X10*3/uL (0.00-0.03); Imm Gran Pct Auto 0.7 % (0.0-0.4); Lymphocytes Absolute Auto 1.1 X10*3/uL (1.2-4.9); Lymphocytes Percent Auto 16.8 % (20-40); Mean Corpuscular HGB Conc 33.4 g/dl (31.0-36.0); Mean Corpuscular Volume 95.9 fL (80.0-98.0); Monocytes Absolute Auto 0.5 X10*3/uL (0.1-1.2); Monocytes Percent Auto 8.1 % (2-11); Neutrophils Absolute Auto 4.9 x10*3/uL (2.0-8.3); Neutrophils Percent Auto 72.8 % (45-73); Platelet Count 163 X10*3/uL (160-400); Red Blood Count 5.09 X10*6/uL (4.60-5.80); Red Cell Distribution Width 12.9 % (11.0-16.0); Troponin-I High Sensitivity < 2.7 ng/L (<3.5-35.0); White Blood Count 6.7 X10*3/uL (4.8-10.8)
[2023-12-08 18:00] LABS: Influenza A PCR NEGATIVE (Negative); Influenza B PCR NEGATIVE (Negative); Resp Syncy Virus RNA Qual PCR NEGATIVE (Negative); SARS COV2 PCR INHOUSE NEGATIVE (Negative)
--- NOTE | 2023-12-08 21:55 | PC.NURSE ---
called to triage x 3 for reassessment. No answer. Presumed LWCT at this time.
== END 2023-12-08 21:56 | disposition left against medical advice (07) ==
PROVIDERS: Physician Assistant; Emergency Provider Emergency Medicine
DX: R53.1 Weakness (principal); Z11.52 Encounter for screening for COVID-19; Z20.828 Contact with and (suspected) exposure to other viral communicable diseases; E78.00 Pure hypercholesterolemia, unspecified; Z86.73 Personal history of transient ischemic attack (TIA), and cerebral infarction without residual deficits; Z79.01 Long term (current) use of anticoagulants; Z79.899 Other long term (current) drug therapy
CPT/HCPCS: 0241U; 36415; 70450; 71250; 74176; 80053; 82550; 83735; 84484; 85025; 93005; 99283; 99284

== ENCOUNTER → 2023-12-08 16:56 | Outpatient (BNV) | payer OTHER, SELFPAY | PROVIDERS: Emergency Provider Emergency Medicine; Visit Provider Internal Medicine Cardiovascular Disease | DX: R53.1 Weakness (principal) | CPT/HCPCS: 93010 ==